=== PATIENT | female | born 1965 | race Two or more races ===

== ENCOUNTER 2019-09-02 22:01 | Emergency (ER) | payer MEDICAID, OTHER ==
[~2019-09-02] VITALS: Ht 167.6 cm; Wt 121.8 kg
[2019-09-02] MEDS ORDERED: SODIUM CHLORIDE FLUSH 10ML SYR IVF ONE (23:00)
[2019-09-02] MEDS ORDERED: DIPHENHYDRAMINE 50 MG/ML, 1ML IVPush ONE (23:00)
[2019-09-02] MEDS ORDERED: PROCHLORPERAZINE 5 MG/ML, 2ML IVPush ONE (23:00)
[2019-09-02] MEDS ORDERED: KETOROLAC 30 MG/1 ML IVPush ONE (23:00)
[2019-09-02 23:21] LABS: BASOPHILS # (AUTO) 0.03 x10^3/uL (0-0.1); BASOPHILS % (AUTO) 1 % (0-1); EOSINOPHILS % (AUTO) 2 % (1-7); LYMPHOCYTES # (AUTO) 2.04 x10^3/uL (1-3.4); LYMPHOCYTES % (AUTO) 33 % (22-44); MD NO; MEAN CORPUSCULAR HEMOGLOBIN 27.4 pg (27.0-34.8); MEAN CORPUSCULAR HGB CONC 32.4 g/dL (32.4-35.8); MEAN CORPUSCULAR VOLUME 84.5 fL (80-100); MEAN PLATELET VOLUME 9.7 fL (7.4-10.4); MONOCYTES # (AUTO) 0.42 x10^3/uL (0.2-0.8); MONOCYTES % (AUTO) 7 % (2-9); NEUTROPHILS # (AUTO) 3.52 x10^3/uL (1.8-6.8); NEUTROPHILS % (AUTO) 58 % (42-75); PLATELET COUNT 219 x10^3/uL (130-400); RED BLOOD COUNT 4.49 x10^6/uL (3.82-5.3)
[2019-09-02 23:32] LABS: ALANINE AMINOTRANSFERASE 26 U/L (12-78); ALBUMIN 3.4 g/dL (3.4-5.0); ANION GAP 4 mmol/L (5-15); CALCIUM 8.8 mg/dL (8.5-10.1); CHLORIDE 111 mmol/L (98-107); CREATININE 0.81 mg/dL (0.55-1.02)
[2019-09-02 23:34] LABS: ALKALINE PHOSPHATASE 96 U/L (45-117); BILIRUBIN,TOTAL 0.3 mg/dL (0.2-1.0); TOTAL PROTEIN 7.5 g/dL (6.4-8.2)
[2019-09-02] MEDS ORDERED: DIPHENHYDRAMINE 50 MG/ML, 1ML ONE (23:50)
[2019-09-02] MEDS ORDERED: PROCHLORPERAZINE 5 MG/ML, 2ML ONE (23:50)
[2019-09-02] MEDS ORDERED: KETOROLAC 30 MG/1 ML ONE (23:51)
--- NOTE | 2019-09-03 01:00 | NUR ---
Assist RN: patient discharged with prescriptions and instruction.verbalized understanding.
[2019-09-03 01:01] VITALS: BP 129/52
== END 2019-09-03 01:03 | disposition home or self-care (01) ==
LOC: ED 09-03 01:00
DX: G51.0 Bell's palsy (principal); G43.C0 Periodic headache syndromes in child or adult, not intractable
CPT/HCPCS: 36415; 70450; 80053; 85025; 93005; 96374; 96375; 99284; J0780; J1200; J1885